=== PATIENT | female | born 1995 | race Caucasian/White ===

== ENCOUNTER → 2021-12-21 | Outpatient (CLI) | payer OTHER ==
[~2021-12-21] MED LIST: PENVK500 PO; Tylenol325 MG PO
[2021-12-23 01:11] LABS: CHLAMYDIA TRACHOMATIS, NAA Negative (Negative)
== END | disposition home or self-care (01) ==
LOC: LAB SHORT 17:29 → LAB 17:29
PROVIDERS: Obstetrics & Gynecology
DX: Z34.81 Encounter for supervision of other normal pregnancy, first trimester (principal)
CPT/HCPCS: 87491; 87591

== ENCOUNTER → 2022-07-28 | Outpatient (CLI) | payer OTHER ==
[~2022-07-28] MED LIST changes: +IBUP800 PO; +Percocet 5-3251 EACH PO
[2022-07-28 20:10] LABS: Creatinine, Urine Random 92.6 mg/dL (27.00-270.00); Protein, Urine Random 20.4 mg/dL (0.0-11.9); Protein/Creat Ratio, Ur Random 0.2
== END | disposition home or self-care (01) ==
LOC: LAB SHORT 16:06
PROVIDERS: Obstetrics & Gynecology
DX: O14.90 Unspecified pre-eclampsia, unspecified trimester (principal)
CPT/HCPCS: 82570; 84156

== ENCOUNTER 2022-07-29 09:33 | Inpatient (IN) | payer BC, OTHER ==
[~2022-07-29] VITALS: Ht 160 cm; Wt 132.7 kg
[~2022-07-29 09:33] MED LIST changes: -IBUP800 PO; -Percocet 5-3251 EACH PO
[2022-07-29 12:07] LABS: PCO2 Cord - Arterial 64.9 mmHg (40-50); PO2 Cord - Arterial < 16 mmHg (16-20); pH Cord - Arterial 7.23 (7.28-7.35)
[2022-07-29 12:09] LABS: PCO2 Cord - Venous 59.1 mmHg (40-50); PO2 Cord - Venous < 16 mmHg (28-32); pH Umbilical Cord - Venous 7.28 (7.26-7.35)
--- NOTE | 2022-07-29 12:22 | NUR ---
07/29/22 1222 MAINORTONG CROCKER BABY BOY BORN AT 1145. CORD SEGMENT SENT W/RT. CORD BLOOD SENT W/FBP RN.
[2022-07-30 05:44] LABS: BASOPHILS ABSOLUTE AUTO 0.01 K/mm3 (0.00-0.23); BASOPHILS PERCENT AUTO 0 % (0-2); EOSINOPHILS PERCENT AUTO 0 % (0-6); Hematocrit 30.1 % (33.0-51.0); Hemoglobin 10.4 g/dL (11.5-16.0); IMMATURE GRAN ABSOLUTE AUTO 0.05 K/mm3 (0.00-0.10); IMMATURE GRAN PERCENT AUTO 0 % (0-1); LYMPHOCYTES ABSOLUTE AUTO 2.51 K/mm3 (0.84-5.20); LYMPHOCYTES PERCENT AUTO 19 % (21-46); MONOCYTES ABSOLUTE AUTO 0.98 K/mm3 (0.16-1.47); MONOCYTES PERCENT AUTO 7 % (4-13); Mean Corpuscular HGB 28.5 pg (26.0-34.0); Mean Corpuscular HGB Conc 34.6 g/dL (31.5-36.5); Mean Corpuscular Volume 83 fL (80-100); Mean Platelet Volume 11.2 fL (9.1-12.4); NEUTROPHILS ABSOLUTE AUTO 10.03 K/mm3 (1.96-9.15); NEUTROPHILS PERCENT AUTO 74 % (41-73); Platelet Count 190 K/mm3 (150-400); RDW Coefficient Variation 12.7 % (11.7-14.2); RDW Standard Deviation 38.5 fL (35.1-46.3); Red Blood Cell Count 3.65 M/mm3 (3.80-5.20); White Blood Cell Count 13.58 K/mm3 (4.00-11.30)
[2022-07-30] MEDS ORDERED: IBUP800 PO (14:41)
[2022-07-30] MEDS ORDERED: Percocet 5-3251 EACH PO (14:42)
== END 2022-07-31 11:55 | disposition home or self-care (01) | DRG 788 ==
LOC: BC 09:33 → MEDS 10:00 → BC 19:39
PROVIDERS: ADMIT Obstetrics & Gynecology
PROC: 10D00Z1 Extraction of Products of Conception, Low, Open Approach (ICD-10-PCS; principal; 2022-07-29 11:30)
DX: O14.94 Unspecified pre-eclampsia, complicating childbirth (principal); O32.1XX0 Maternal care for breech presentation, not applicable or unspecified; Z3A.39 39 weeks gestation of pregnancy; Z37.0 Single live birth; Z67.40 Type O blood, Rh positive
CPT/HCPCS: 36415; 82803; 85025; 86850; 86900; 86901; A9270; J0171; J0690; J0694; J1100; J1885; J2001; J2370; J2405; J2590; J2704; J2765; J3010; J7120